=== PATIENT | female | born 1960 | race Two or more races ===

== ENCOUNTER → 2023-07-27 | Day surgery (SDC) | payer OTHER ==
[2023-07-21 10:12] LABS: HEMATOCRIT 36.2 % (36.0-45.00); HEMOGLOBIN 12.3 g/dL (12.0-15.00); MEAN CELL VOLUME 85.1 fL (80.00-100.00); MEAN CORPUSCULAR HEMOGLOBIN 28.9 pg (27.00-32.0); MEAN CORPUSCULAR HGB CONC 33.9 g/dl (32.0-36.0); PLATELET COUNT 363 K/uL (150-450); RED BLOOD COUNT 4.26 M/uL (4.00-6.00); RED CELL DISTRIBUTION WIDTH 13.6 % (11.5-14.5)
[2023-07-21 10:18] LABS: URINE APPEARANCE Clear; URINE BILIRRUBIN Negative (NEGATIVE); URINE BLOOD Small; URINE COLOR Yellow; URINE GLUCOSE Negative (NEGATIVE); URINE LEUKOCYTE Negative; URINE NITRATE Negative; URINE PROTEIN Negative (NEGATIVE); URINE UROBILINOGEN 0.2 E.U./dl
[2023-07-21 10:24] LABS: URINE BACTERIA 30.2 uL (0.0-1933); URINE EPITHELIAL CELLS 6.7 uL (0.0-38.8); URINE RBC 41.1 uL (0.0-20.8); URINE WBC 3.3 uL (0.0-23.2)
[2023-07-21 10:37] LABS: ALBUMIN 3.8 gm/dL (3.4-5.0); BILIRUBIN TOTAL 0.47 mg/dL (0.3-1.2); CALCIUM 10.2 mg/dL (8.5-10.1); CREATININE SERUM 0.68 mg/dL (0.55-1.02); GFR 87.67; GLOBULINA 3.8 G/DL (2.4-3.5); POTASSIUM 4.92 mEq/L (3.5-5.1); TOTAL PROTEIN 7.6 gm/dL (6.4-8.2)
[2023-07-21 10:44] LABS: INR 1.04; PARTIAL THROMBOPLASTIN TIME 27.1 SECONDS (22.0-34.0); PROTHROMBIN TIME 10.9 SECONDS (9.0-11.5)
[~2023-07-27] MED LIST: TRAM1TAB98 PO
== END | disposition home or self-care (01) ==
LOC: ADM 07-21 08:30 → CIR.AMB 07:31
PROVIDERS: ATTEND Specialist
DX: C78.89 Secondary malignant neoplasm of other digestive organs (principal); Z20.822 Contact with and (suspected) exposure to COVID-19

== ENCOUNTER 2023-09-03 15:14 | Inpatient (IN) | payer OTHER ==
[2023-09-03 15:55] LABS: HEMATOCRIT 38.4 % (36.0-45.00); MEAN CELL VOLUME 85.4 fL (80.00-100.00); MEAN CORPUSCULAR HEMOGLOBIN 28.9 pg (27.00-32.0); MEAN CORPUSCULAR HGB CONC 33.9 g/dl (32.0-36.0); PLATELET COUNT 562 K/uL (150-450); RED CELL DISTRIBUTION WIDTH 13.9 % (11.5-14.5)
[2023-09-03 16:21] LABS: INR 1.04; PARTIAL THROMBOPLASTIN TIME 27.4 SECONDS (22.0-34.0); PROTHROMBIN TIME 10.9 SECONDS (9.0-11.5)
[2023-09-03 16:26] LABS: ALBUMIN 2.6 gm/dL (3.4-5.0); BILIRUBIN TOTAL 0.39 mg/dL (0.3-1.2); CALCIUM 9.7 mg/dL (8.5-10.1); CREATININE SERUM 0.59 mg/dL (0.55-1.02); GFR 103.28; GLOBULINA 4.3 G/DL (2.4-3.5); POTASSIUM 4.39 mEq/L (3.5-5.1); TOTAL PROTEIN 6.9 gm/dL (6.4-8.2)
[2023-09-03] MEDS ORDERED: RINGERS SOLUTION,LACTATED 1,000 ML IV SCH (19:45)
[2023-09-03] MEDS ORDERED: HYOSCYAMINE SULFATE 0.125 MG TAB.SUBL SL SCH (21:00)
[2023-09-03] MEDS ORDERED: ACETAMINOPHEN 500 MG GEL..CAP PO PRN (21:00)
[2023-09-03] MEDS ORDERED: FAMOTIDINE/PF 20 MG/2 ML VIAL IV PUSH SCH (21:00)
[2023-09-03] MEDS ORDERED: MORPHINE SULFATE 4 MG/ML CARTRIDGE IV PRN (21:00)
[2023-09-03] MEDS ORDERED: ONDANSETRON HCL 2 MG/ML VIAL IV PRN (21:00)
[2023-09-04] MEDS ORDERED: BARIUM SULFATE 450 ML ORAL.SUSP PO ONE (06:00)
[2023-09-04 07:48] LABS: PH,URINE 6.5 (5.0-8.0); URINE APPEARANCE Cloudy; URINE BILIRRUBIN Negative (NEGATIVE); URINE COLOR Dark Yellow; URINE GLUCOSE Negative (NEGATIVE); URINE LEUKOCYTE Trace; URINE NITRATE Negative; URINE PROTEIN Trace (NEGATIVE); URINE UROBILINOGEN 0.2 E.U./dl
[2023-09-04 07:50] LABS: HEMOGLOBIN 12.4 g/dL (12.0-15.00); MEAN CORPUSCULAR HEMOGLOBIN 28.9 pg (27.00-32.0); MEAN CORPUSCULAR HGB CONC 33.6 g/dl (32.0-36.0); PLATELET COUNT 525 K/uL (150-450); RED CELL DISTRIBUTION WIDTH 13.8 % (11.5-14.5)
[2023-09-04 07:52] LABS: CALCIUM 9.2 mg/dL (8.5-10.1); CHOL HDL RATIO 3.3 (0-5.0); CREATININE SERUM 0.49 mg/dL (0.55-1.02); GFR 127.97; POTASSIUM 4.79 mEq/L (3.5-5.1)
[2023-09-04 07:52] LABS: URINE EPITHELIAL CELLS 29.2 uL (0.0-38.8); URINE RBC 79.4 uL (0.0-20.8); URINE WBC 22.8 uL (0.0-23.2)
[2023-09-04 08:46] LABS: URINE BLOOD TRACE
[2023-09-04 08:50] LABS: URINE CRYSTALS MANY /HPF
[2023-09-04 08:52] LABS: ALBUMIN 2.5 gm/dL (3.4-5.0); BILIRUBIN TOTAL 0.43 mg/dL (0.3-1.2); CALCIUM 9.5 mg/dL (8.5-10.1); CREATININE SERUM 0.52 mg/dL (0.55-1.02); GFR 119.49; GLOBULINA 3.9 G/DL (2.4-3.5); POTASSIUM 4.78 mEq/L (3.5-5.1); TOTAL PROTEIN 6.4 gm/dL (6.4-8.2)
[2023-09-04] MEDS ORDERED: AA 4.25%/CAL/LYTES/DEXT 5% 1,000 ML PERIFERAL SCH (17:00)
[2023-09-05] MEDS ORDERED: TEMAZEPAM 15 MG CAPSULE PO SCH (21:00)
[2023-09-06 07:55] LABS: HEMATOCRIT 37.5 % (36.0-45.00); HEMOGLOBIN 12.6 g/dL (12.0-15.00); MEAN CELL VOLUME 84.3 fL (80.00-100.00); MEAN CORPUSCULAR HEMOGLOBIN 28.4 pg (27.00-32.0); MEAN CORPUSCULAR HGB CONC 33.7 g/dl (32.0-36.0); PLATELET COUNT 573 K/uL (150-450); RED BLOOD COUNT 4.45 M/uL (4.00-6.00); RED CELL DISTRIBUTION WIDTH 14.3 % (11.5-14.5)
[2023-09-06 08:24] LABS: INR 1.04; PARTIAL THROMBOPLASTIN TIME 26.4 SECONDS (22.0-34.0); PROTHROMBIN TIME 10.9 SECONDS (9.0-11.5)
[2023-09-06 08:27] LABS: ALBUMIN 2.4 gm/dL (3.4-5.0); BILIRUBIN TOTAL 0.73 mg/dL (0.3-1.2); BILIRUBIN,CONJUGATED 0.22 mg/dL (0.0-0.2); BILIRUBIN,UNCONJUGATED 0.51 mg/dL (0.0-0.6); CALCIUM 9.4 mg/dL (8.5-10.1); CHOL HDL RATIO 3.3 (0-5.0); CREATININE SERUM 0.47 mg/dL (0.55-1.02); GFR 134.27; GLOBULINA 4.1 G/DL (2.4-3.5); MAGNESIUM 2.2 mg/dL (1.8-2.4); POTASSIUM 4.67 mEq/L (3.5-5.1); TOTAL PROTEIN 6.5 gm/dL (6.4-8.2)
[2023-09-06 08:58] LABS: UREA CLEARANCE 8.4 ML/MIN
[2023-09-07 01:09] LABS: BILI PERITONEAL FLUID 0.34 mg/dl; CREA PERITONEAL FLUID 0.49 mg/dl; TP PERITONEAL FLUID 4.5 g/dl
[2023-09-07] MEDS ORDERED: METOCLOPRAMIDE HCL 10 MG TABLET PO SCH (13:53)
[2023-09-07] MEDS ORDERED: HYOSCYAMINE0.125 M1 SL (14:10)
[2023-09-07] MEDS ORDERED: TRAM1TAB98 PO (14:11)
[2023-09-07] MEDS ORDERED: METOCLOPRAMIDE10 MG PO (14:12)
[2023-09-07] MEDS ORDERED: PROTONIX40 MG PO (14:13)
[2023-09-07] MEDS ORDERED: PEPCID AC20 MG PO (14:13)
== END 2023-09-07 16:03 | disposition home or self-care (01) | DRG 948 ==
LOC: MEDJ 15:14 → OB/GYN 09-04 02:01 → MEDI 09-04 02:57 → MEDJ 09-04 02:58
PROVIDERS: Radiology Vascular & Interventional Radiology; ADMIT Internal Medicine Hematology & Oncology; ATTEND Internal Medicine Hematology & Oncology
PROC: 0W9G3ZZ Drainage of Peritoneal Cavity, Percutaneous Approach (ICD-10-PCS; principal; 2023-09-06)
PROC: BW21YZZ Computerized Tomography (CT Scan) of Abdomen and Pelvis using Other Contrast (ICD-10-PCS; 2023-09-06)
DX: R18.8 Other ascites (principal); C16.9 Malignant neoplasm of stomach, unspecified; K74.60 Unspecified cirrhosis of liver; K29.00 Acute gastritis without bleeding

== ENCOUNTER 2023-09-20 12:57 | Inpatient (IN) | payer OTHER ==
[~2023-09-20] VITALS: Ht 154.9 cm; Wt 40.8 kg
[~2023-09-20 12:57] MED LIST changes: +HYOSCYAMINE0.125 M1 SL; +METOCLOPRAMIDE10 MG PO; +PEPCID AC20 MG PO; +PROTONIX40 MG PO
[2023-09-20 14:00] LABS: PH,URINE 5.5 (5.0-8.0); URINE APPEARANCE Clear; URINE BILIRRUBIN Small (NEGATIVE); URINE BLOOD Negative; URINE COLOR Dark Yellow; URINE GLUCOSE Negative (NEGATIVE); URINE LEUKOCYTE Trace; URINE NITRATE Negative; URINE PROTEIN 30 (NEGATIVE)
[2023-09-20 14:01] LABS: URINE BACTERIA 1417.4 uL (0.0-1933); URINE EPITHELIAL CELLS 26.2 uL (0.0-38.8); URINE RBC 20.1 uL (0.0-20.8); URINE WBC 29.6 uL (0.0-23.2)
[2023-09-20 14:03] LABS: HEMATOCRIT 33.7 % (36.0-45.00); HEMOGLOBIN 11.1 g/dL (12.0-15.00); MEAN CELL VOLUME 85.1 fL (80.00-100.00); MEAN CORPUSCULAR HEMOGLOBIN 28.1 pg (27.00-32.0); PLATELET COUNT 570 K/uL (150-450); RED BLOOD COUNT 3.96 M/uL (4.00-6.00)
[2023-09-20 14:37] LABS: URINE CRYSTALS MODERATE /HPF; URINE EPITHELIAL CELLS 0-4 /HPF
[2023-09-20 14:52] LABS: ALBUMIN 2.2 gm/dL (3.4-5.0); BILIRUBIN TOTAL 0.41 mg/dL (0.3-1.2); CALCIUM 9.5 mg/dL (8.5-10.1); CREATININE SERUM 0.53 mg/dL (0.55-1.02); GFR 116.89; GLOBULINA 4.4 G/DL (2.4-3.5); POTASSIUM 4.52 mEq/L (3.5-5.1); TOTAL PROTEIN 6.6 gm/dL (6.4-8.2)
[2023-09-20 15:12] LABS: INR 1.19; PARTIAL THROMBOPLASTIN TIME 29.9 SECONDS (22.0-34.0); PROTHROMBIN TIME 12.3 SECONDS (9.0-11.5)
[2023-09-20] MEDS ORDERED: ACETAMINOPHEN 500 MG GEL..CAP PO PRN (19:00)
[2023-09-20] MEDS ORDERED: MORPHINE SULFATE 4 MG/ML CARTRIDGE IV PRN (19:00)
[2023-09-20] MEDS ORDERED: RINGERS SOLUTION,LACTATED 1,000 ML IV SCH (19:00)
[2023-09-20] MEDS ORDERED: ONDANSETRON HCL 2 MG/ML VIAL IV PRN (19:00)
[2023-09-20] MEDS ORDERED: HYOSCYAMINE SULFATE 0.125 MG TABLET SL PRN (19:00)
[2023-09-20] MEDS ORDERED: FAMOTIDINE/PF 20 MG/2 ML VIAL IV SCH (21:00)
[2023-09-20] MEDS ORDERED: METOCLOPRAMIDE HCL 5 MG/ML VIAL IV SCH (21:00)
[2023-09-20] MEDS ORDERED: CIPROFLOXACIN IN 5 % DEXTROSE 400 MG/200 ML PIGGYBAG IV STA (21:19)
[2023-09-21] MEDS ORDERED: CIPROFLOXACIN IN 5 % DEXTROSE 400 MG/200 ML PIGGYBAG IV SCH (09:00)
[2023-09-21] MEDS ORDERED: PANTOPRAZOLE SODIUM 40 MG TABLET.DR PO SCH (09:00)
[2023-09-21] MEDS ORDERED: AA 4.25%/CALCIUM/LYTES/DEX 10% 1,000 ML CENTRAL SCH (17:00)
[2023-09-21 17:58] LABS: CALCIUM 8.7 mg/dL (8.5-10.1); CHOL HDL RATIO 3.2 (0-5.0); CREATININE SERUM 0.54 mg/dL (0.55-1.02); GFR 114.39; POTASSIUM 4.34 mEq/L (3.5-5.1)
[2023-09-22] MEDS ORDERED: HYOSCYAMINE SULFATE 0.125 MG TAB.SUBL PO PRN (08:15)
[2023-09-22] MEDS ORDERED: SPIRONOLACTONE 50 MG TABLET PO SCH (20:06)
[2023-09-22] MEDS ORDERED: SUCRALFATE 1 G TABLET PO SCH (20:06)
[2023-09-23] MEDS ORDERED: MAG HYDROX/ALUMINUM HYD/SIMETH 30 ML BLIST.PACK PO SCH (00:01)
[2023-09-23] MEDS ORDERED: NYSTATIN 30 GM CREAM.GM. TOP SCH (09:00)
[2023-09-23] MEDS ORDERED: SILVER SULFADIAZINE 50 GM,NYSTATIN 30 GM,ZINC OXIDE 30 GM TOP SCH (09:00)
[2023-09-23] MEDS ORDERED: ZINC OXIDE 30 GM TUBE TOP SCH (09:00)
[2023-09-23] MEDS ORDERED: SILVER SULFADIAZINE 50 GM JAR TOP SCH (09:00)
[2023-09-23] MEDS ORDERED: HYOSCYAMINE0.125 M1 SL (14:57)
[2023-09-23] MEDS ORDERED: PEPCID AC20 MG PO (14:58)
[2023-09-23] MEDS ORDERED: SPIRONOLACTONE50 MG PO (14:58)
[2023-09-23] MEDS ORDERED: TRAM1TAB98 PO (14:58)
[2023-09-23] MEDS ORDERED: PROTONIX40 MG PO (14:59)
[2023-09-23] MEDS ORDERED: MAG-AL PLUS SUS30 M1 PO (14:59)
[2023-09-23] MEDS ORDERED: METOCLOPRAMIDE10 MG PO (14:59)
[2023-09-23] MEDS ORDERED: CARAFATE1 GM PO (15:00)
== END 2023-09-23 16:25 | disposition home or self-care (01) | DRG 690 ==
LOC: SEC-K 12:57 → MEDJ 12:57 → SEC-K 13:21 → MEDJ 09-21 00:05
PROVIDERS: ADMIT Internal Medicine Hematology & Oncology; ATTEND Internal Medicine Hematology & Oncology
PROC: B54CZZZ Ultrasonography of Left Lower Extremity Veins (ICD-10-PCS; principal; 2023-09-20)
DX: N39.0 Urinary tract infection, site not specified (principal); C16.9 Malignant neoplasm of stomach, unspecified; R18.8 Other ascites; K29.00 Acute gastritis without bleeding
CPT/HCPCS: 240

== ENCOUNTER 2023-10-06 14:33 | Inpatient (IN) | payer OTHER ==
[~2023-10-06] VITALS: Ht 154.9 cm; Wt 40.8 kg
[~2023-10-06 14:33] MED LIST changes: +CARAFATE1 GM PO; +MAG-AL PLUS SUS30 M1 PO; +SPIRONOLACTONE50 MG PO
--- NOTE | 2023-10-06 15:07 | NUR ---
PACIENTE ALERTA Y ORIENTADA X 3. LA MISMA REFIERE DEBILIDAD, CANSANCIO, FALTA DE APETITO. LA MISMA TIENE REFERIDO DE DR. NELLA CLANCY PARA EVALUACION Y POSIBLE ADMISION. LA MISMA PRESENTAAMBOS PIES EDEMATOSOS.
[2023-10-06] MEDS ORDERED: FUROsemide 20 MG/2 ML VIAL IV ONE (16:45)
[2023-10-06] MEDS ORDERED: 0.9 % SODIUM CHLORIDE 500 ML IV ONE (16:45)
[2023-10-06] MEDS ORDERED: ONDANSETRON HCL 4 MG in 0.9 % SODIUM CHLORIDE 50 ML IV PRN (17:00)
[2023-10-06] MEDS ORDERED: ACETAMINOPHEN 500 MG GEL..CAP PO PRN (17:00)
[2023-10-06] MEDS ORDERED: AMINO ACIDS/PROTEIN HYDROLYS 30 ML BLIST.PACK PO SCH (17:00)
[2023-10-06 19:04] LABS: HEMATOCRIT 34.3 % (36.0-45.00); HEMOGLOBIN 11.2 g/dL (12.0-15.00); MEAN CELL VOLUME 85.6 fL (80.00-100.00); MEAN CORPUSCULAR HEMOGLOBIN 27.9 pg (27.00-32.0); MEAN CORPUSCULAR HGB CONC 32.6 g/dl (32.0-36.0); PLATELET COUNT 496 K/uL (150-450); RED BLOOD COUNT 4.01 M/uL (4.00-6.00); RED CELL DISTRIBUTION WIDTH 14.9 % (11.5-14.5)
[2023-10-06 19:12] LABS: ERYTHROCYTE SEDIMENTATION RATE 126 mm/hr
[2023-10-06] MEDS ORDERED: CEFTRIAXONE SODIUM 2,000 MG in 0.9 % SODIUM CHLORIDE 100 ML IV SCH (19:18)
[2023-10-06 19:29] LABS: D DIMER 2.85 MG/L; PARTIAL THROMBOPLASTIN TIME 22.9 SECONDS (22.0-34.0)
[2023-10-06 19:31] LABS: ALBUMIN 1.8 gm/dL (3.4-5.0); BILIRUBIN TOTAL 0.45 mg/dL (0.3-1.2); CALCIUM 9.3 mg/dL (8.5-10.1); CREATININE SERUM 0.63 mg/dL (0.55-1.02); GFR 95.75; GLOBULINA 5.3 G/DL (2.4-3.5); POTASSIUM 3.66 mEq/L (3.5-5.1); TOTAL PROTEIN 7.1 gm/dL (6.4-8.2)
[2023-10-06 19:36] LABS: INR 1.41; PROTHROMBIN TIME 14.4 SECONDS (9.0-11.5)
[2023-10-06] MEDS ORDERED: AA 4.25%/CAL/LYTES/DEXT 5% 1,000 ML PERIFERAL SCH (19:55)
[2023-10-06 20:46] LABS: PH,URINE 5.5 (5.0-8.0); URINE APPEARANCE Cloudy; URINE BILIRRUBIN Small (NEGATIVE); URINE BLOOD Negative; URINE COLOR Dark Yellow; URINE GLUCOSE Negative (NEGATIVE); URINE LEUKOCYTE Negative; URINE NITRATE Negative; URINE PROTEIN 30 (NEGATIVE)
[2023-10-06 20:47] LABS: URINE BACTERIA 31.4 uL (0.0-1933); URINE EPITHELIAL CELLS 13.7 uL (0.0-38.8); URINE WBC 3.5 uL (0.0-23.2)
[2023-10-06 21:29] LABS: URINE CRYSTALS MODERATE /HPF; URINE MUCUS MODERATE
[2023-10-06] MEDS ORDERED: DEXTROSE 50 % IN WATER 0.5 G/ML DISP.SYRIN IV PRN (23:30)
[2023-10-06] MEDS ORDERED: INSULIN LISPRO 1,000 UNIT/10 ML UNITS SUBCUTANEO PRN (23:30)
[2023-10-07] MEDS ORDERED: METRONIDAZOLE/SODIUM CHLORIDE 100 ML IV SCH (01:00)
[2023-10-07] MEDS ORDERED: ALBUMIN HUMAN-25 0.25GM/ML (50ML) VIAL IV SCH ×2 (01:00)
[2023-10-07] MEDS ORDERED: FUROsemide 20 MG/2 ML VIAL IV SCH (09:00)
[2023-10-07] MEDS ORDERED: METOCLOPRAMIDE HCL 10 MG in DEXTROSE 5 % IN WATER 50 ML IV SCH (18:05)
[2023-10-08] MEDS ORDERED: DEXTROSE 10 % IN WATER 500 ML IV SCH (11:45)
[2023-10-08] MEDS ORDERED: AA 4.25%/CAL/LYTES/DEXT 5% 1,000 ML PERIFERAL SCH (17:00)
[2023-10-08] MEDS ORDERED: PHENAZOPYRIDINE HCL 200 MG TABLET PO SCH (17:00)
[2023-10-08] MEDS ORDERED: LACTOBACILLUS ACIDOPHILUS 1 CAP CAP PO SCH (17:31)
[2023-10-08] MEDS ORDERED: CHOLESTYRAMINE/ASPARTAME LIGHT 4 G/PKT PACKET PO SCH (17:32)
== END 2023-10-09 16:36 | disposition home or self-care (01) | DRG 433 ==
LOC: ER 14:34 → MEDJ 17:23 → SURH 17:23
PROVIDERS: General Practice; ADMIT Internal Medicine; ATTEND Internal Medicine
PROC: BW21ZZZ Computerized Tomography (CT Scan) of Abdomen and Pelvis (ICD-10-PCS; 2023-10-06)
PROC: BB24ZZZ Computerized Tomography (CT Scan) of Bilateral Lungs (ICD-10-PCS; 2023-10-06)
PROC: 4A12X4Z Monitoring of Cardiac Electrical Activity, External Approach (ICD-10-PCS; principal; 2023-10-07)
PROC: 0W9G3ZZ Drainage of Peritoneal Cavity, Percutaneous Approach (ICD-10-PCS; 2023-10-07)
DX: K74.69 Other cirrhosis of liver (principal); C16.9 Malignant neoplasm of stomach, unspecified; K31.1 Adult hypertrophic pyloric stenosis; R64 Cachexia; K21.9 Gastro-esophageal reflux disease without esophagitis; K29.00 Acute gastritis without bleeding; E86.0 Dehydration; I10 Essential (primary) hypertension